=== PATIENT | female | born 1990 | race Two or more races ===

== ENCOUNTER 2020-05-14 11:43 | Emergency (ER) | payer OTHER ==
[2020-05-14] MEDS ORDERED: diphenhydrAMINE 25 MG CAPSULE PO STA (11:49)
--- NOTE | 2020-05-14 11:51 | ED Physician Documentation ---
History of Present Illness - Stated complaint Stated Complaint: ALLERGIC REACTION - Additonal information Additional information: 29-year-old female presents the emergency department for evaluation of generalized pruritus about 30 minutes following her second mode Latrice COVID-19 v accination. She received the vaccination at approximately 10:10 AM. She denies chest pain shortness of breath. There was no rash. No dysphonia difficulty speaking swallowing. There was no face lip or tongue swelling. She arrives here via EMS. Appears very well speaking in full complete sentences. Since the initial reaction the pruritis has mostly resolved and she is feeling better. no treatment or medications have yet been levied Review of Systems Constitutional: denies: Fever, Chills Eyes: reports: Reviewed and negative Ears: reports: Reviewed and negative Nose: reports: Reviewed and negative Throat: reports: Reviewed and negative Cardiac: reports: Reviewed and negative Respiratory: reports: Reviewed and negative : reports: Reviewed and negative Skin: reports: Other (generalized pruritis without rash). denies: Rash, Lesions Musculoskeletal: reports: Reviewed and negative Neurologic: reports: Reviewed and negative PD PAST MEDICAL HISTORY - Present Medications Home Medications: Ambulatory Orders Medication Instructions Recorded Confirmed Control 1 tab DAILY 05/14/20 Sertraline HCl 100 mg PO DAILY 05/14/20 05/14/20 - Allergies Allergies/Adverse Reactions: Allergies Allergy/AdvReac Type Severity Reaction Status Date / Time No Known Drug Allergies Allergy Verified 05/14/20 11:48 PD ED PE NORMAL - General General: Alert and oriented X 3, No acute distress, Well developed/nourished - HEENT HEENT: PERRL, Ears normal, Moist mucous membranes, Pharynx benign, Other (No tongue lip oropharynx swelling.) - Neck Neck: Supple, no meningeal sign, No adenopathy - Cardiac Cardiac: RRR, No murmur, No gallop, Strong equal pulses - Respiratory Respiratory: No respiratory distress, Clear bilaterally - Abdomen Abdomen: Normal bowel sounds, Non tender - Back Back: No CVA TTP - Derm Derm: Normal color, Warm and dry, No rash Results - Vitals Vitals: Vital Signs - 24 hr 05/14/20 11:48 Temperature 36.9 C Heart Rate 78 Respiratory 19 Rate Blood Pressure 136/70 H O2 Saturation 98 Oxygen O2 Source Room air PD MEDICAL DECISION MAKING - ED course Complexity details: re-evaluated patient, d/w patient ED course: Well-appearing 29-year-old female presents the emergency department for evaluation of generalized pruritus without rash after receiving her 6-second mode urine COVID-19 vaccination. Despite lack of any treatment the pruritus has mostly resolved and she appears very well. No evidence of airway involvement. Normal vitals. Patient was given 25 mg of Benadryl here in the emergency department and observed for short period of time. She will be discharged home. Emergent return precautions were discussed. Departure - Departure Disposition: , Self Care Clinical Impression: Allergic reaction Qualifiers: Encounter type: initial encounter Qualified Code(s): T78.40XA - Allergy, unspecified, initial encounter Condition: Stable Record reviewed to determine appropriate education?: Yes Instructions: ED Allergic Reaction General Other Comments: Juliana the itchiness that you experienced may be related to the motor and a vaccine. It seems to have mostly resolved by the time that you arrived to the emergency department. However we did give you 25 mg of Benadryl. You can expect that you may tomorrow have fevers, body aches chills or even flulike symptoms. This is quite common after the second COVID-19 vaccine. If you have any further episodes of itchiness without a rash it is okay to take Benadryl [id number]. If you begin to develop tongue, lip or swelling in the mouth, have shortness of breath or difficulty breathing please return immediately to the emergency department
[2020-05-14 12:39] VITALS: BP 124/75
== END 2020-05-14 12:39 | disposition home or self-care (01) ==
LOC: ED 11:43
DX: T78.40XA Allergy, unspecified, initial encounter (principal)
CPT/HCPCS: 99283; A9270

== ENCOUNTER 2020-10-28 10:59 | Outpatient (CLI) | payer OTHER ==
--- NOTE | 2020-10-28 15:18 | MRI Report ---
PROCEDURE: Lumbar Spine W/O INDICATIONS: LUMBAGO W/ SCIATICA TECHNIQUE: Noncontrast sagittal T1 spin echo and T2 fast echo, sagittal STIR, axial T1 and T2 fast spin echo thr ough the lumbar spine. In cases with scoliosis, additional coronal T2 fast spin echo may be performe d. COMPARISON: None. FINDINGS: Normal lumbar vertebral body height and alignment. No suspicious focal marrow signal abnormality or b one marrow edema. Normal height and hydration of the intervertebral discs without lumbar disc herniat ion. Normal position and appearance of the conus. Prevertebral and paraspinous soft tissues are sadie l. There are multiple T2 hyperintense cysts within the posterior epidural space of the lower lumbar spin e and upper sacrum. These are consistent with Tarlov or arachnoid cysts. Two cysts at the level of the L4-L5 interspace measuring approximately 4 mm, within the posterior-mos t epidural space producing no mass effect thecal sac and no significant erosion or scalloping of the adjacent bone. These do not extend into the neural foramina and produce no local regional mass effec t. Slightly larger cysts are present at the L5 level and at the L5-S1 interface, measuring approximately 4 mm and 12 mm, respectively. Larger cyst at the L5-S1 level extends laterally to the right into the right L5-S1 foramen (for example series 501 images 7-13 and axial T2 series 601 image 15). There is displacement and likely impingement upon the exiting right L5 nerve root. There is lesser extension t owards the right posterior epidural space without extension into the neural foramen proper. The theca l sac at this level is narrowed mildly without significant mass effect on the intradural nerve roots. A very large cyst is present in the sacral spinal canal, producing mass effect upon the thecal sac wi th likely impingement of multiple descending sacral nerve roots. This cyst also produces scalloping a nd erosion of the sacrum itself, with near-complete destruction of the S2, S3, and S4 vertebral kamari s as well as posterior elements. This cyst measures approximately 6.7 cm maximum craniocaudal dimensi on and approximately 3.2 x 5.0 cm maximum axial dimension (series 601 image 11 and series 501 image 9 ). 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 The larger cyst exerted produce eli pected impingement of multiple descending sacral nerve roots as well as the exiting right L5 nerve ro ot. There is also considerable bony erosion/scalloping of the sacrum due to the mass effect from the cysts. Neurosurgical consultation is recommended. Reviewed by: Austen Russell MD on 10/28/2020 3:17 PM PDT Approved by: Austen Russell MD on 10/28/2020 3:17 PM PDT Station ID: [id number]
== END 2020-10-28 11:00 | disposition home or self-care (01) ==
LOC: DI 10:59
PROVIDERS: ATTEND Physician Assistant
DX: G96.191 Perineural cyst (principal); M85.88 Other specified disorders of bone density and structure, other site

== ENCOUNTER 2020-12-15 07:08 | Outpatient (CLI) | payer OTHER ==
--- NOTE | 2020-12-15 10:08 | MRI Report ---
PROCEDURE: Lumbar Spine W/O INDICATIONS: Tarlov cysts, back pain, lumbosacral radiculopathy TECHNIQUE: Noncontrast sagittal T1 spin echo and T2 fast echo, sagittal STIR, axial T1 and T2 fast spin echo thr ough the lumbar spine. In cases with scoliosis, additional coronal T2 fast spin echo may be performe d. COMPARISON: 10/28/2020 MRI lumbar spine FINDINGS: Normal lumbar vertebral body height and alignment. No suspicious focal marrow signal abnormality or b one marrow edema. Normal height and hydration of the intervertebral discs without lumbar disc herniat ion. Normal position and appearance of the conus. Prevertebral and paraspinous soft tissues are sadie l. Multiple T2 hyperintense cysts within the posterior epidural space of the lower lumbar spine and uppe r sacrum are unchanged. These remain consistent with either a Tarlov cyst or arachnoid cyst. The two small cysts at the L4-L5 there is place measuring approximately 4 mm, situated within the pos terior epidural space. These produce no significant mass effect upon the thecal sac or traversing ner ve roots. There is no associated significant bony scalloping/or resolution. These do not extend into the neural foramina and are likely of no clinical significance. Slightly larger cyst at the L5 level and L5-S1 level measuring measure 4 mm and 12 mm, unchanged. The larger cyst at the L5-S1 level extends into the right L5-S1 foramen as seen on the prior study, prod ucing displacement and probable impingement of the exiting right L5 nerve root. The thecal sac at thi s level is mildly narrowed without significant mass effect on the intradural nerve roots. The largest cyst is present in the sacral spinal canal, producing considerable mass effect upon the t hecal sac with displacement and probable impingement of multiple descending sacral nerve roots bilate rally. This cyst also produces considerable scalloping and erosion of the sacrum itself, unchanged fr om the prior study. The cyst measures approximately 6.7 cm maximum craniocaudal dimension and approxi mately 3.2 x 5.0 cm maximum axial dimension (not significantly changed from prior study). IMPRESSION: Unchanged Tarlov cysts in the lower lumbar spine and upper sacrum. As seen on the prior study, the la rger cysts produce significant mass effect and suspected impingement upon multiple descending sacral nerve roots in addition to the exiting right L5 nerve root. Associated bony erosion and scalloping of the sacrum due to mass effect from the cyst is also unchanged. Reviewed by: Austen Russell MD on 12/15/2020 10:07 AM PDT Approved by: Austen Russell MD on 12/15/2020 10:07 AM PDT Station ID: [id number]
--- NOTE | 2020-12-15 10:12 | CT Report ---
PROCEDURE: LUMBAR SPINE WO INDICATIONS: TARLOV CYSTS, BACK PAIN, LUMBAR/SACRAL RADICULOPAT TECHNIQUE: Noncontrast 3 mm thick sections acquired from the T12 level to the sacrum. Sagittal and coronal refo rmats were constructed. For radiation dose reduction, the following was used: automated exposure co ntrol, adjustment of mA and/or kV according to patient size. COMPARISON: Same day MRI 10/28/2020 MRI lumbar spine FINDINGS: These images demonstrate expansion of the sacral spinal canal with associated scalloping and cortical erosion/thinning due to the presence of a large Tarlov cysts in the sacral spine better seen on the comparison MRI studies. There is no fracture. No suspicious bone lesion otherwise. Normal lumbar vert ebral body height and alignment. Significant degenerative disease. The included regional soft tissues are within normal limits. IMPRESSION: Tarlov cysts expanding the sacral spinal canal resulting in significant sacral scalloping and bony er osion. Reviewed by: Austen Russell MD on 12/15/2020 10:10 AM PDT Approved by: Austen Russell MD on 12/15/2020 10:10 AM PDT Station ID: [id number]
--- NOTE | 2020-12-15 10:42 | MRI Report ---
PROCEDURE: Cervical Spine W/O INDICATIONS: TARLOV CYSTS, BACK PAIN, LUMBAR/SACRAL RADICULOPAT TECHNIQUE: Noncontrast sagittal T1 spin echo and T2 fast spin echo, sagittal STIR, foraminal oblique sagittal T2 fast spin echo, and axial gradient echo or T2 fast spin echo through the cervical spine. COMPARISON: Correlation is made with the accompanying lumbar spine MRI examination. FINDINGS: Image quality: Diagnostic Alignment and Curvature: There is normal bony alignment. Bone Marrow: Marrow demonstrates normal overall signal. Spinal Cord: Visualized spinal cord has normal size and signal. No cerebellar tonsillar herniation. Paraspinous Soft Tissues: No paravertebral masses. Prevertebral soft tissues are normal in thicknes s. C2-C3: Normal in appearance. C3-C4: Normal in appearance. C4-C5: Normal in appearance. C5-C6: Normal in appearance. C6-C7: Normal in appearance. C7-T1: Normal in appearance. IMPRESSION: Normal cervical spine MRI, without significant disc pathology, central canal narrowing, or neural for aminal narrowing. Reviewed by: Roverto Beal MD on 12/15/2020 9:40 AM LUANN Approved by: Roverto Beal MD on 12/15/2020 9:40 AM LUANN Station ID: [id number]
--- NOTE | 2020-12-15 11:07 | MRI Report ---
PROCEDURE: Pelvis W/O INDICATIONS: TARLOV CYSTS, BACK PAIN, LUMBAR/SACRAL RADICULOPAT CONTRAST: None. TECHNIQUE: Noncontrast axial and coronal T1 spin echo and STIR through the lumbosacral plexus region. Additiona l coronal T1 gradient echo coronal and sagittal STIR were obtained. COMPARISON: Lumbar spine MRI 10/28/2020 FINDINGS: Image quality: Excellent. Lumbosacral plexus: Prominent lobulated Tarlov cyst or cysts are again noted in the sacral canal wit h chronic remodeling and thinning of the sacral vertebral bodies. The cysts extend into the right L5- S1 neural foramen and portions of the left and right S1-2 neural foramina, and abut the traversing S1 and S2 nerve roots. The pelvic portions of the sacral nerves and lumbosacral plexus appear normal. T he proximal sciatic nerves appear normal without extrinsic compression. Soft tissues: No presacral masses. Rectum appears normal in caliber and wall thickness. Trace free fluid in the pelvis is most likely physiologic. No visualized adenopathy by size criteria. Bones: Marrow is normal in overall signal. IMPRESSION: Prominent lobulated Tarlov cysts again noted in the sacral canal with chronic remodeling of the sacra l vertebral bodies. The cysts abut the right L5 nerve root and the bilateral S1 and S2 nerve roots an d could be causing impingement. No extraspinal compression of the lumbosacral plexus is seen. Reviewed by: Lawrence Carter MD on 12/15/2020 11:06 AM PDT Approved by: Lawrence Carter MD on 12/15/2020 11:06 AM PDT Station ID: [id number]
--- NOTE | 2020-12-15 11:55 | MRI Report ---
PROCEDURE: MRI Thoracic spine without contrast INDICATIONS: Back pain TECHNIQUE: Noncontrast sagittal T1 spine echo and T2 fast spin echo, sagittal STIR, axial T1 and T2 fast spin ec ho through the thoracic spine. COMPARISON: None. FINDINGS: Image quality: Excellent. Alignment and Curvature: There is normal bony alignment. Bone Marrow: Marrow is of normal overall signal. No acute vertebral body compression fractures. Spinal Cord: Visualized spinal cord is normal in size and signal. Paraspinous Soft Tissues: No paravertebral masses. Miscellaneous: On axial images, central canal and foramina appear widely patent at all scanned level s. IMPRESSION: Unremarkable MRI thoracic spine without contrast. Reviewed by: Brayden Dent MD on 12/15/2020 10:53 AM LUANN Approved by: Brayden Dent MD on 12/15/2020 10:53 AM LUANN Station ID: [id number]
== END 2020-12-15 07:09 | disposition home or self-care (01) ==
LOC: DI 07:08
PROVIDERS: ATTEND Neurological Surgery
DX: G96.191 Perineural cyst (principal); M54.16 Radiculopathy, lumbar region; M54.18 Radiculopathy, sacral and sacrococcygeal region

== ENCOUNTER 2021-03-22 19:14 | Emergency (ER) | payer OTHER ==
[2021-03-22 19:42] VITALS: BP 117/66
--- NOTE | 2021-03-22 21:04 | ED Physician Documentation ---
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 She has a known positive exposure to COVID. She has been immunized against COVID. Review of Systems Constitutional: reports: Chills, Myalgias, Fatigue Nose: reports: Rhinorrhea / runny nose Throat: reports: Sore throat Respiratory: reports: Cough. denies: Dyspnea PD PAST MEDICAL HISTORY - Past Surgical History Past Surgical History: No - Present Medications Home Medications: Ambulatory Orders Medication Instructions Recorded Confirmed Control 1 tab DAILY 05/14/20 Sertraline HCl 100 mg PO DAILY 05/14/20 05/14/20 - Allergies Allergies/Adverse Reactions: Allergies Allergy/AdvReac Type Severity Reaction Status Date / Time No Known Drug Allergies Allergy Verified 03/22/21 19:41 - Social History Does the pt smoke?: No Smoking Status: Never smoker Does the pt drink ETOH?: No Does the pt have substance abuse?: No - Immunizations Immunizations are current?: Yes PD ED PE NORMAL - Vitals Vital signs reviewed: Yes - General General: Alert and oriented X 3, No acute distress - Neck Neck: Supple, no meningeal sign, No bony TTP - Neuro Neuro: Alert and oriented X 3, Normal speech - Psych Psych: Normal mood, Normal affect Results - Vitals Vitals: Vital Signs - 24 hr 03/22/21 19:41 Temperature 36.9 C Heart Rate 103 H Respiratory 18 Rate Blood Pressure 117/66 O2 Saturation 98 Oxygen O2 Source Room air PD MEDICAL DECISION MAKING - ED course ED course: 30-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 Departure - Departure Disposition: 01 Home, Self Care Clinical Impression: Viral syndrome Condition: Good Instructions: ED Viral Syndrome Comments: You have a Covid test pending. You need to self quarantine until the result is done and negative. Do not leave your house. Do not get near anybody. The results should be done in 48 to 72 hours. We will call with a positive result, the fastest way to get a negative result for confirmation though is to go to the hospital website at [email or web address], click on the my [facility] tab and sign up for the patient portal. If any friends or family get sick and would like to have a Covid test done, but do not have signs or symptoms that would necessitate being hospitalized, there are multiple local options for Covid testing. [facility] keeps an updated list of testing and vaccination options at: [email or web address]. Forms: Activity restrictions
== END 2021-03-22 21:05 | disposition home or self-care (01) ==
LOC: ED 19:14
DX: U07.1 COVID-19 (principal); B34.9 Viral infection, unspecified
CPT/HCPCS: 99281; 99283